=== PATIENT | female | born 1965 | race Two or more races ===

== ENCOUNTER 2023-08-26 15:21 | Emergency (ER) | payer OTHER ==
[~2023-08-26] VITALS: Ht 175.3 cm; Wt 72.7 kg
[2023-08-26] MEDS ORDERED: ACETAMINOPHEN 500 MG TAB PO ONE (15:45)
[2023-08-26 16:50] VITALS: BP 139/73; PULSE 80; RESP 18; O2SAT 99
[2023-08-26 17:52] VITALS: TEMP 98.5
== END 2023-08-26 18:24 | disposition home or self-care (01) ==
LOC: ER 15:21
DX: S92.355A Nondisplaced fracture of fifth metatarsal bone, left foot, initial encounter for closed fracture (principal); S93.492A Sprain of other ligament of left ankle, initial encounter; Z98.890 Other specified postprocedural states; Z88.8 Allergy status to other drugs, medicaments and biological substances; X58.XXXA Exposure to other specified factors, initial encounter; Y93.89 Activity, other specified; Y92.59 Other trade areas as the place of occurrence of the external cause; Y99.8 Other external cause status
CPT/HCPCS: 29515; 73610; 73630